=== PATIENT | female | born 1945 | race Caucasian/White ===

== ENCOUNTER 2024-11-25 04:13 | Emergency (ER) | payer BC, SELFPAY ==
[2024-11-25 04:26] VITALS: BP 126/74
[2024-11-25 05:07] VITALS: BP 144/78; BMI 26.5
[2024-11-25 05:09] VITALS: BP 144/78
[2024-11-25 05:25] LABS: % Basophils 0.5 % (0-2); % Eosinophils 0.8 % (0-6); % Immature Granulocytes 0.4 % (0-0.5); % Lymphocytes 6.4 % (20.5-51.1); % Neutrophils 85.9 % (42.2-75.2); Absolute Eosinophils 0.1 10^3/uL (0-0.7); Absolute Lymphocytes 0.5 10^3/uL (1.2-3.4); Absolute Monocytes 0.4 10^3/uL (0.1-0.6); Absolute Neutrophils 6.3 10^3/uL (1.4-6.5); Hematocrit 38.4 % (37.0-47.0); Hemoglobin 12.9 g/dL (12.0-16.0); Mean Corp Hgb Conc. 33.6 g/dL (33.0-37.0); Mean Corpuscular Hgb 31.7 pg (27.0-31.0); Mean Corpuscular Volume 94.3 fL (81.0-99.0); Mean Platelet Volume 8.7 fL (7.4-10.4); Nucleated Red Blood Cells % 0.3 %; Platelet Count 143 10^3/uL (130-400); Red Blood Cell Count 4.07 10^6/uL (4.20-5.40); Red Cell Dist. Width 11.9 % (11.5-14.5); White Blood Cell Count 7.4 10^3/uL (4.8-10.8)
[2024-11-25 05:41] LABS: Urine Albumin 2+ (Neg - Trace); Urine Bilirubin Negative (Negative); Urine Character Slightly Cloudy (Clear); Urine Color Amber; Urine Glucose Negative (Negative); Urine Ketone 2+ (Negative); Urine Leukocyte 1+ (Negative); Urine Nitrite Negative (Negative); Urine Occult Blood 4+ (Negative); Urine Urobilinogen Negative (Neg - 1+)
[2024-11-25 05:51] LABS: ALT (SGPT) 55 U/L (0-35); AST (SGOT) 39 U/L (14-36); Albumin 3.6 g/dl (3.5-5.0); Alkaline Phosphatase 72 U/L (38-126); Blood Urea Nitrogen 21 mg/dl (7-17); Calcium 9.3 mg/dl (8.4-10.2); Carbon Dioxide 26 mmol/L (22-30); Chloride 100 mmol/L (98-107); Estimated Creatinine Clearance 37 ml/min; Glucose 137 mg/dl (70-99); Lipase 115 U/L (23-300); Potassium 4.6 mmol/L (3.5-5.1); Sodium 134 mmol/L (135-145); Total Bilirubin 1.1 mg/dl (0.2-1.3); Total Protein 6.2 g/dl (6.3-8.2); eGFR 51.43
[2024-11-25 06:13] LABS: Urine Squamous Cell >30 /LPF (Few)
[2024-11-25 06:17] LABS: Urine Amorphous Seen
[2024-11-25 06:18] LABS: Urine Bacteria Moderate (Negative); Urine Red Blood Cell 70-80 /HPF (0-2)
[2024-11-25] MEDS: ZOFRAN 4 MG IV (06:25)
[2024-11-25] MEDS: NSS 500 IV (06:26)
[2024-11-25] MEDS: TORADOL 15 MG IV (06:26)
[2024-11-25 06:29] VITALS: BP 137/73
--- NOTE | 2024-11-25 07:10 | ED.GENMED ---
History of Present Illness
General
Chief Complaint: Abdominal Pain
Source: patient
Exam Limitations: none
Time Seen by Provider: 11/25/24 06:07
Nursing documentation reviewed up to this point in time: agreed with
History of Present Illness
History of Present Illness:
Patient presents to ED secondary to intermittent pain over the past 3 days. Patient states that when her pain began, it started over right upper back, which now has radiated to the front of abdomen, near her groin. Denies fever or chills. Patient
reports nausea and vomiting sensation when pain is exacerbated. Denies trauma. Denies difficulty urination. Denies previous history of similar symptoms. There is no family history of gallstones or kidney stones. Denies recent illness. Denies
recent change in medications or diet. Denies recent change in activities.
Review of Systems
Review of Systems
Allergies reviewed?: Yes
All Other Systems: ROS reviewed and negative except as documented in HPI and ROS
Constitutional: Reports no symptoms; Denies fever or chills
Respiratory: Reports no symptoms; Denies trouble breathing
Cardiac: Reports no symptoms; Denies chest pain
ABD/GI: Reports abdominal pain, nausea and vomiting
: Reports flank pain
Musculoskeletal: Reports back pain
Skin: Reports no symptoms
Neurological: Reports no symptoms
Phy Exam
Physical Exam
Physical Exam:
Physical Exam
General: mild painful distress, not acutely ill. afebrile
Head: nc/at. eomi
Neck: supple. no meningeal signs.
Heart: s1/s2 regular rate and rhythm, no murmur.
Lungs: no acute respiratory distress.
Abdomen: normal bowel sounds. not tender. no distention
Neuro: alert and oriented x 3. no focal neurological deficits
Skin: no rash
Psychiatric: well kept. interactive and cooperative
Extremities: no edema. no calf tenderness.
Course
Orders/Labs/Results
Orders:
Orders
03/19/25 04:49
IV Insert/Care/Rem.- Treatment PRN
11/25/24 05:03
Complete Blood Count/With Diff Urgent
Comprehensive Metabolic Panel Urgent
Lipase Urgent
11/25/24 05:29
UA Reflex to Culture [Urinalysis Reflex To Culture] Urgent
Date Specimen was Collected: 11/25/24
Time Specimen was Collected: 05:27
Urine Microscopic Reflex Cult Urgent
Urine Culture Urgent
SHAMAR Source: U
Specimen Description:
Date Specimen was Collected: 11/25/24
Time Specimen was Collected: 05:27
11/25/24 06:18
0.9% Sodium Chloride 500 ml [Nss] 500 ml IV BOLUS
Ketorolac [Toradol] 15 mg IV NOW STA
Ondansetron Injectable [Zofran] 4 mg IV NOW STA
11/25/24 06:19
CT Abd/pel Without Iv Or Oral Urgent
Comment:
Reason For Exam: right flank pain
Abnormal Lab Results
11/25/24 11/25/24
05:03 05:29
RBC 4.07 L 10^6/uL
(4.20-5.40)
MCH 31.7 H pg
(27.0-31.0)
Absolute Lymphs (auto) 0.5 L 10^3/uL
(1.2-3.4)
Neutrophils % 85.9 H %
(42.2-75.2)
Lymphocytes % 6.4 L %
(20.5-51.1)
Sodium 134 L mmol/L
(135-145)
BUN 21 H mg/dl
(7-17)
Creatinine 1.1 H mg/dL
(0.6-1.0)
Glucose 137 H mg/dl
(70-99)
AST 39 H U/L
(14-36)
ALT 55 H U/L
(0-35)
Total Protein 6.2 L g/dl
(6.3-8.2)
Urine Ketones 2+ A
(Negative)
Ur Occult Blood Reflex 4+ A
(Negative)
Leukocyte Esterase Rfl 1+ A
(Negative)
Urine RBC 70-80 A /HPF
(0-2)
Urine Bacteria (Reflex) Moderate A
(Negative)
Urine Albumin (Reflex) 2+ A
(Neg - Trace)
11/25/24 05:03
11/25/24 05:03
Vital Signs
Initial and Last Documented VS:
Initial Vital Signs
Temp Pulse Resp BP Pulse Ox
98.3 F 100 20 126/74 94
11/25/24 04:26 11/25/24 04:26 11/25/24 04:26 11/25/24 04:26 11/25/24 04:26
Last Documented Vital Signs
Temp Pulse Resp BP Pulse Ox
98.3 F 70 18 137/73 94
11/25/24 04:26 11/25/24 06:29 11/25/24 06:29 11/25/24 06:29 11/25/24 06:29
MDM/Problems Addressed
MDM/Problems Addressed:
CT report reviewed and discussed with patient, including number of incidental findings. Patient advised to follow-up with primary care physician for further evaluation and treatment.
In addition, in terms of renal stone causing obstructive symptoms, patient will be given urine strainer along with prescription for Toradol and Flomax, along with urology for an outpatient consultation. Advised to return to ED with worsening
symptoms, i.e. fever/inability to urinate/worsening pain. Patient expresses understanding at time of discharge. Patient reports complete resolution of symptoms after treatment, at time of discharge, to the care of her spouse.
*Critical Care Note
Total Time (30-74mins, 75-104mins- exclusive of procedures): Not Applicable
ED Attending Note
-
Portions of this chart may have been created with voice recognition software.� Occasional wrong word or��sound alike� substitutions may have occurred due to the inherent limitations of voice recognition software.
Discharge Plan
Departure
Patient Disposition: Home (Routine Discharge)
Date of Disposition: 11/25/24
Time of Disposition: 07:39
Patient with high blood pressure during this ER visit?: Yes
Condition: Good
Discharge Problem:
Renal colic
Instructions: Renal Colic (DC)
Prescriptions:
New
tamsulosin [Flomax] 0.4 mg Capsule
0.4 mg PO DAILY Qty: 7 0RF
ondansetron 4 mg Tablet,Disintegrating
4 mg PO TIDPRN PRN (Reason: nausea/vomiting) Qty: 12 0RF
ketorolac 10 mg tablet
10 mg PO Q8H PRN (Reason: Pain) Qty: 14 0RF
Rx Instructions:
maximum total duration of 5 days from all oral, intranasal, or parenteral formulations
Referrals:
Chalo Mar MD [Active] -
UNKNOWN - PT DOES,NOT KNOW [Family Provider] -
Activity Restrictions/Additional Instructions:
As discussed, please follow-up with your primary care physician as well as referred urologist for further evaluation and treatment, including review of provided CT report. Please consider returning to ED with worsening symptoms, i.e.
fever/inability to urinate/worsening pain. Your prescriptions have been sent electronically to [facility] pharmacy in [place].
Interventions
Interventions:
*Risk Screen - Suicide Last Done: 11/25/24 04:26
*General Assessment Last Done: 11/25/24 05:08
*Neglect/Abuse Screening Last Done: 11/25/24 04:26
*ED- Fall Risk Assessment Last Done: 11/25/24 05:08
*ED COVID-19 Vaccine History Last Done: 11/25/24 05:08
*Nursing Disposition Last Done: 11/25/24 08:29
WT-Hfgcna-Ptatdgcnjg Assessment Last Done: 11/25/24 05:22
Discharge Date and Time
Discharge Date/Time: 11/25/24 08:30
Print Language: ICELANDIC
== END 2024-11-25 08:30 | disposition home or self-care (01) ==
LOC: EMR 04:13
PROVIDERS: Student in an Organized Health Care Education/Training Program; EMERGENCY PHYSICIAN Emergency Medicine
DX: N13.2 Hydronephrosis with renal and ureteral calculous obstruction (principal); Z90.13 Acquired absence of bilateral breasts and nipples
CPT/HCPCS: 99284; 74176; 80053; 81003; 81015; 83690; 85025; 87086

== ENCOUNTER → 2024-12-11 07:44 | Outpatient (REF) | payer OTHER, SELFPAY ==
[2024-12-11 09:17] LABS: % Basophils 0.6 % (0-2); % Eosinophils 1.3 % (0-6); % Immature Granulocytes 0.7 % (0-0.5); % Lymphocytes 5.8 % (20.5-51.1); % Monocytes 4.8 % (1.7-9.3); % Neutrophils 86.8 % (42.2-75.2); Absolute Basophils 0.1 10^3/uL (0-0.2); Absolute Eosinophils 0.2 10^3/uL (0-0.7); Absolute Immature Granulocytes 0.1 10^3/uL (0-0.05); Absolute Lymphocytes 0.7 10^3/uL (1.2-3.4); Absolute Monocytes 0.6 10^3/uL (0.1-0.6); Hematocrit 31.9 % (37.0-47.0); Hemoglobin 10.7 g/dL (12.0-16.0); Mean Corp Hgb Conc. 33.5 g/dL (33.0-37.0); Mean Corpuscular Hgb 31.1 pg (27.0-31.0); Mean Corpuscular Volume 92.7 fL (81.0-99.0); Mean Platelet Volume 8.6 fL (7.4-10.4); Nucleated Red Blood Cells % 0 %; Platelet Count 312 10^3/uL (130-400); Red Blood Cell Count 3.44 10^6/uL (4.20-5.40); Red Cell Dist. Width 13.3 % (11.5-14.5); White Blood Cell Count 12.7 10^3/uL (4.8-10.8)
[2024-12-11 09:59] LABS: ALT (SGPT) 178 U/L (0-35); AST (SGOT) 202 U/L (14-36); Albumin 2.7 g/dl (3.5-5.0); Alkaline Phosphatase 524 U/L (38-126); Blood Urea Nitrogen 12 mg/dl (7-17); Calcium 8.4 mg/dl (8.4-10.2); Carbon Dioxide 29 mmol/L (22-30); Chloride 98 mmol/L (98-107); Glucose 115 mg/dl (70-99); Potassium 4.7 mmol/L (3.5-5.1); Sodium 135 mmol/L (135-145); Total Bilirubin 1.1 mg/dl (0.2-1.3); Total Protein 5.6 g/dl (6.3-8.2); eGFR > 60.00
[2024-12-11 10:24] LABS: TSH 4.28 uIU/ml (0.47-4.68)
== END ==
LOC: REG 07:44
PROVIDERS: ATTENDING PHYSICIAN Specialist
DX: N20.0 Calculus of kidney (principal); N20.1 Calculus of ureter
CPT/HCPCS: 36415; 74018; 80053; 84443; 85025

== ENCOUNTER → 2025-01-14 10:46 | Outpatient (REF) | payer OTHER, SELFPAY | LOC: RAD 10:46 | PROVIDERS: ATTENDING PHYSICIAN Student in an Organized Health Care Education/Training Program | DX: R53.83 Other fatigue (principal); K44.9 Diaphragmatic hernia without obstruction or gangrene; R91.1 Solitary pulmonary nodule; R74.8 Abnormal levels of other serum enzymes; M89.9 Disorder of bone, unspecified | CPT/HCPCS: 72190; 76700 ==

== ENCOUNTER 2025-02-13 04:27 | Emergency (ER) | payer OTHER, SELFPAY ==
[2025-02-13] VITALS (8 sets, daily range): BP systolic 98–124; BP diastolic 60–81; BMI 25.2
[2025-02-13 05:06] LABS: % Basophils 0.6 % (0-2); % Eosinophils 1.7 % (0-6); % Immature Granulocytes 0.4 % (0-0.5); % Lymphocytes 13.1 % (20.5-51.1); % Monocytes 4.8 % (1.7-9.3); % Neutrophils 79.4 % (42.2-75.2); Absolute Basophils 0.1 10^3/uL (0-0.2); Absolute Eosinophils 0.1 10^3/uL (0-0.7); Absolute Lymphocytes 1.1 10^3/uL (1.2-3.4); Absolute Monocytes 0.4 10^3/uL (0.1-0.6); Absolute Neutrophils 6.6 10^3/uL (1.4-6.5); Hematocrit 32.9 % (37.0-47.0); Hemoglobin 10.2 g/dL (12.0-16.0); Mean Corpuscular Hgb 26.9 pg (27.0-31.0); Mean Corpuscular Volume 86.8 fL (81.0-99.0); Mean Platelet Volume 7.9 fL (7.4-10.4); Nucleated Red Blood Cells % 0 %; Platelet Count 293 10^3/uL (130-400); Red Blood Cell Count 3.79 10^6/uL (4.20-5.40); Red Cell Dist. Width 15.8 % (11.5-14.5); White Blood Cell Count 8.4 10^3/uL (4.8-10.8)
[2025-02-13 05:08] LABS: Urine Albumin 1+ (Neg - Trace); Urine Bilirubin Negative (Negative); Urine Character Clear (Clear); Urine Color Yellow; Urine Glucose Negative (Negative); Urine Ketone 2+ (Negative); Urine Leukocyte Negative (Negative); Urine Nitrite Negative (Negative); Urine Occult Blood 1+ (Negative); Urine Specific Gravity 1.025 (<1.030); Urine Urobilinogen Negative (Neg - 1+)
[2025-02-13 05:23] LABS: Urine Mucus Many; Urine Squamous Cell >30 /LPF (Few)
[2025-02-13 05:24] LABS: Urine Bacteria Moderate (Negative)
[2025-02-13 05:37] LABS: ALT (SGPT) < 10 U/L (0-35); AST (SGOT) 14 U/L (14-36); Albumin 3.4 g/dl (3.5-5.0); Alkaline Phosphatase 71 U/L (38-126); Blood Urea Nitrogen 18 mg/dl (7-17); Calcium 9.3 mg/dl (8.4-10.2); Carbon Dioxide 25 mmol/L (22-30); Chloride 104 mmol/L (98-107); Glucose 127 mg/dl (70-99); Lipase 229 U/L (23-300); Potassium 4.5 mmol/L (3.5-5.1); Sodium 137 mmol/L (135-145); Total Bilirubin 0.6 mg/dl (0.2-1.3); Total Protein 6.4 g/dl (6.3-8.2); eGFR > 60.00
[2025-02-13] MEDS: ZOFRAN 4 MG IV (06:26)
--- NOTE | 2025-02-13 06:26 | ED.GENMED ---
History of Present Illness
General
Chief Complaint: Abdominal Pain
Source: patient
Exam Limitations: none
Time Seen by Provider: 02/13/25 06:02
Nursing documentation reviewed up to this point in time: agreed with
History of Present Illness
History of Present Illness:
79-year-old female history of anal hernia found on a prior CT generally asymptomatic recently diagnosed with hypothyroid started on Synthroid presents with right upper abdominal pain after eating a turkey sandwich no prior episodes
Pain is sharp goes into her back hard to take a deep breath due to pain no fever chills no prior abdominal surgeries stones or gallbladder
Past History
Past History
ED Past Medical History: Hypothyroidism and Other (Hiatal hernia hypothyroid)
ED Past Surgical History: Tonsilectomy; Negative Appendectomy or Cardiac
Social History
Tobacco: Non-smoker
Alcohol: None
Drug: None
Personal:
Living: with family
Employment: Employed
Phy Exam
Physical Exam
Physical Exam:
Physical Exam
General: 79-year-old female looks uncomfortable
Neck: No jaundice
Heart: s1/s2 regular rate and rhythm, no murmur. equal radial pulses.
Lungs: No wheeze
Abdomen: Tender in the right upper
Neuro: alert and oriented. no focal neurological deficits
Skin: no rash
Psychiatric: well kept. interactive and cooperative
Extremities: no edema.
Course
Orders/Labs/Results
Orders:
Orders
02/13/25 04:35
IV Insert/Care/Rem.- Treatment PRN
Straight cath- Treatment ONCE
02/13/25 04:47
Complete Blood Count/With Diff Urgent
Comprehensive Metabolic Panel Urgent
Lipase Urgent
Urinalysis Reflex To Culture Urgent
Date Specimen was Collected: 02/13/25
Time Specimen was Collected: 04:36
Urine Microscopic Reflex Cult Urgent
Urine Culture Urgent
SHAMAR Source: U
Specimen Description:
Date Specimen was Collected: 02/13/25
Time Specimen was Collected: 04:36
02/13/25 06:21
US Abdomen Complete/Upper Urgent
Comment:
Reason For Exam: pain
02/13/25 06:22
Electrocardiogram (*1) Urgent
Reason for Study: Abdominal Pain
EKG- Treatment ONCE
HYDROmorphone [Dilaudid] 0.5 mg IV NOW STA
Ondansetron Injectable [Zofran] 4 mg IV NOW STA
Pantoprazole [Protonix IV] 40 mg IV NOW STA
02/13/25 06:34
Ketorolac [Toradol] 30 mg IV NOW STA
02/13/25 09:43
CT Chest PE Study Urgent
Comment:
Reason For Exam: sob right sided pain
02/13/25 11:37
US Periph Venous LOWER Ext Vamshi Urgent
Comment:
Reason For Exam: PE
02/13/25 11:37
Apixaban [Eliquis] 10 mg PO NOW STA
02/13/25 11:38
NT-proBNP Urgent
Troponin I Urgent
Abnormal Lab Results
02/13/25
04:47
RBC 3.79 L 10^6/uL
(4.20-5.40)
Hgb 10.2 L g/dL
(12.0-16.0)
Hct 32.9 L %
(37.0-47.0)
MCH 26.9 L pg
(27.0-31.0)
MCHC 31.0 L g/dL
(33.0-37.0)
RDW 15.8 H %
(11.5-14.5)
Absolute Neuts (auto) 6.6 H 10^3/uL
(1.4-6.5)
Absolute Lymphs (auto) 1.1 L 10^3/uL
(1.2-3.4)
Neutrophils % 79.4 H %
(42.2-75.2)
Lymphocytes % 13.1 L %
(20.5-51.1)
BUN 18 H mg/dl
(7-17)
Glucose 127 H mg/dl
(70-99)
Albumin 3.4 L g/dl
(3.5-5.0)
Urine Ketones 2+ A
(Negative)
Ur Occult Blood Reflex 1+ A
(Negative)
Urine RBC 7-10 A /HPF
(0-2)
Urine Bacteria (Reflex) Moderate A
(Negative)
Urine Albumin (Reflex) 1+ A
(Neg - Trace)
02/13/25 04:47
02/13/25 04:47
Vital Signs
Initial and Last Documented VS:
Initial Vital Signs
Temp Pulse Resp BP Pulse Ox
97.9 F 114 20 115/74 94
02/13/25 04:30 02/13/25 04:30 02/13/25 04:30 02/13/25 04:30 02/13/25 04:30
Last Documented Vital Signs
Temp Pulse Resp BP Pulse Ox
98.5 F 82 16 98/62 96
02/13/25 05:38 02/13/25 10:30 02/13/25 10:30 02/13/25 10:00 02/13/25 10:30
MDM/Problems Addressed
Differential Diagnosis Includes:
Biliary colic pancreatitis gastritis hiatal hernia pulmonary issue doubt appendicitis
MDM/Problems Addressed:
Abdominal pain after eating turkey
*Radiology
Radiology exam reviewed: preliminary read by ED provider and radiology read reviewed
*Pulse Oximetry
Patient hypoxic: no
Comment: 98
*EKG
Interpreted by ED Provider?: Yes
Interpretation: normal
Comparison EKG: no comparison EKG present
Heart Rate: 78
Rate: normal
Ischemia: non-specific ST changes
*Storage Manager Interpretation
Rate: normal
Interpretation: normal
Heart Rate: 78
Rhythm: sinus
*Critical Care Note
Total Time (30-74mins, 75-104mins- exclusive of procedures): 30
Update Note
Update Note:
9:[address] noted patient states she feels little better after Toradol does report that she was short of breath and the pain up into her chest we will check CT PE scan, rule out PE also get another look potentiate her biliary tract on the
lower cuts
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
ED Attending Note
-
Portions of this chart may have been created with voice recognition software.� Occasional wrong word or��sound alike� substitutions may have occurred due to the inherent limitations of voice recognition software.
Discharge Plan
Departure
Prescriptions:
No Action
tamsulosin [Flomax] 0.4 mg Capsule
0.4 mg PO DAILY Qty: 7 0RF
ondansetron 4 mg Tablet,Disintegrating
4 mg PO TIDPRN PRN (Reason: nausea/vomiting) Qty: 12 0RF
ketorolac 10 mg tablet
10 mg PO Q8H PRN (Reason: Pain) Qty: 14 0RF
Rx Instructions:
maximum total duration of 5 days from all oral, intranasal, or parenteral formulations
Referrals:
Halley Hanna CRNP [Family Provider, Internal Medicine]
Interventions
Interventions:
*Risk Screen - Suicide Last Done: 02/13/25 04:30
*General Assessment Last Done: 02/13/25 04:30
*Neglect/Abuse Screening Last Done: 02/13/25 04:30
*ED- Fall Risk Assessment Last Done: 02/13/25 04:30
*ED COVID-19 Vaccine History Last Done: 02/13/25 04:30
XQ-Yzgaoz-Bdxcxyawhb Assessment Last Done: 02/13/25 05:38
Discharge Date and Time
Print Language: JAPANESE
[2025-02-13] MEDS: TORADOL 30 MG IV (06:57)
[2025-02-13] MEDS: ELIQUIS 10 MG PO (11:54)
[2025-02-13 12:37] LABS: NT-proBNP 145 pg/ml; Troponin I < 0.012 ng/ml
--- NOTE | 2025-02-13 14:22 | ED.GENMED ---
History of Present Illness
General
Chief Complaint: Abdominal Pain
Time Seen by Provider: 02/13/25 06:02
Past History
Past History
ED Past Medical History: Hypothyroidism and Other (Hiatal hernia hypothyroid)
ED Past Surgical History: Tonsilectomy; Negative Appendectomy or Cardiac
Social History
Tobacco: Non-smoker
Alcohol: None
Drug: None
Personal:
Living: with family
Employment: Employed
Course
Orders/Labs/Results
Orders:
Orders
02/13/25 04:35
IV Insert/Care/Rem.- Treatment PRN
Straight cath- Treatment ONCE
02/13/25 04:47
Complete Blood Count/With Diff Urgent
Comprehensive Metabolic Panel Urgent
Lipase Urgent
Urinalysis Reflex To Culture Urgent
Date Specimen was Collected: 02/13/25
Time Specimen was Collected: 04:36
Urine Microscopic Reflex Cult Urgent
Urine Culture Urgent
SHAMAR Source: U
Specimen Description:
Date Specimen was Collected: 02/13/25
Time Specimen was Collected: 04:36
02/13/25 06:21
US Abdomen Complete/Upper Urgent
Comment:
Reason For Exam: pain
02/13/25 06:22
Electrocardiogram (*1) Urgent
Reason for Study: Abdominal Pain
EKG- Treatment ONCE
HYDROmorphone [Dilaudid] 0.5 mg IV NOW STA
Ondansetron Injectable [Zofran] 4 mg IV NOW STA
Pantoprazole [Protonix IV] 40 mg IV NOW STA
02/13/25 06:34
Ketorolac [Toradol] 30 mg IV NOW STA
02/13/25 09:43
CT Chest PE Study Urgent
Comment:
Reason For Exam: sob right sided pain
02/13/25 11:37
Apixaban [Eliquis] 10 mg PO NOW STA
US Periph Venous LOWER Ext Vamshi Stat
Comment:
Reason For Exam: PE
02/13/25 11:53
NT-proBNP Urgent
Troponin I Urgent
Abnormal Lab Results
02/13/25
04:47
RBC 3.79 L 10^6/uL
(4.20-5.40)
Hgb 10.2 L g/dL
(12.0-16.0)
Hct 32.9 L %
(37.0-47.0)
MCH 26.9 L pg
(27.0-31.0)
MCHC 31.0 L g/dL
(33.0-37.0)
RDW 15.8 H %
(11.5-14.5)
Absolute Neuts (auto) 6.6 H 10^3/uL
(1.4-6.5)
Absolute Lymphs (auto) 1.1 L 10^3/uL
(1.2-3.4)
Neutrophils % 79.4 H %
(42.2-75.2)
Lymphocytes % 13.1 L %
(20.5-51.1)
BUN 18 H mg/dl
(7-17)
Glucose 127 H mg/dl
(70-99)
Albumin 3.4 L g/dl
(3.5-5.0)
Urine Ketones 2+ A
(Negative)
Ur Occult Blood Reflex 1+ A
(Negative)
Urine RBC 7-10 A /HPF
(0-2)
Urine Bacteria (Reflex) Moderate A
(Negative)
Urine Albumin (Reflex) 1+ A
(Neg - Trace)
02/13/25 04:47
02/13/25 04:47
Vital Signs
Initial and Last Documented VS:
Initial Vital Signs
Temp Pulse Resp BP Pulse Ox
97.9 F 114 20 115/74 94
02/13/25 04:30 02/13/25 04:30 02/13/25 04:30 02/13/25 04:30 02/13/25 04:30
Last Documented Vital Signs
Temp Pulse Resp BP Pulse Ox
98.5 F 82 16 98/62 97
02/13/25 05:38 02/13/25 10:30 02/13/25 10:30 02/13/25 10:00 02/13/25 12:03
Update Note
Update Note:
2:20 PM update patient remains hemodynamically stable here she would like to go home negative cardiac markers given a coupon card for Eliquis
ED Attending Note
-
Portions of this chart may have been created with voice recognition software.� Occasional wrong word or��sound alike� substitutions may have occurred due to the inherent limitations of voice recognition software.
Discharge Plan
Departure
Patient Disposition: Home (Routine Discharge)
Date of Disposition: 02/13/25
Time of Disposition: 14:23
Patient with high blood pressure during this ER visit?: No
Condition: Good
Discharge Problem:
Pulmonary emboli
Prescriptions:
No Action
tamsulosin [Flomax] 0.4 mg Capsule
0.4 mg PO DAILY Qty: 7 0RF
ondansetron 4 mg Tablet,Disintegrating
4 mg PO TIDPRN PRN (Reason: nausea/vomiting) Qty: 12 0RF
ketorolac 10 mg tablet
10 mg PO Q8H PRN (Reason: Pain) Qty: 14 0RF
Rx Instructions:
maximum total duration of 5 days from all oral, intranasal, or parenteral formulations
Referrals:
Halley Hanna CRNP [Family Provider, Internal Medicine] - Next open appointment
Activity Restrictions/Additional Instructions:
Eliquis 10 mg twice a day for 7 days, then 5 mg twice a day
Tylenol as needed for pain
Follow-up with your primary care provider call Saturday for an appointment
Interventions
Interventions:
*Risk Screen - Suicide Last Done: 02/13/25 04:30
*General Assessment Last Done: 02/13/25 04:30
*Neglect/Abuse Screening Last Done: 02/13/25 04:30
*ED- Fall Risk Assessment Last Done: 02/13/25 04:30
*ED COVID-19 Vaccine History Last Done: 02/13/25 04:30
KX-Ljonat-Uryozmcgqy Assessment Last Done: 02/13/25 05:38
Discharge Date and Time
Print Language: SLOVENIAN
== END 2025-02-13 14:43 | disposition home or self-care (01) ==
LOC: EMR 04:27
PROVIDERS: Emergency Medicine; EMERGENCY PHYSICIAN Emergency Medicine; FAMILY PHYSICIAN Nurse Practitioner Primary Care
DX: R10.9 Unspecified abdominal pain (principal); E03.9 Hypothyroidism, unspecified; R06.02 Shortness of breath; R07.89 Other chest pain; R26.89 Other abnormalities of gait and mobility; Z79.899 Other long term (current) drug therapy
CPT/HCPCS: 99284; 96374; 96375; 71275; 76700; 80053; 81003; 81015; 83690; 83880; 84484; 85025; 87086; 93005; 93970; Q9967

== ENCOUNTER → 2025-03-09 07:09 | Outpatient (REF) | payer OTHER, SELFPAY | LOC: RCS 07:09 | PROVIDERS: ATTENDING PHYSICIAN Nurse Practitioner Primary Care | DX: I26.99 Other pulmonary embolism without acute cor pulmonale (principal); R06.09 Other forms of dyspnea; Z85.3 Personal history of malignant neoplasm of breast; D50.8 Other iron deficiency anemias; R59.0 Localized enlarged lymph nodes | CPT/HCPCS: 74177; 93306; Q9967 ==

== ENCOUNTER 2025-04-07 07:06 | Outpatient (RCR) | payer OTHER, SELFPAY | END 2025-04-07 23:59 | disposition home or self-care (01) | LOC: RPT 07:06 | PROVIDERS: ATTENDING PHYSICIAN Nurse Practitioner Primary Care | DX: M54.16 Radiculopathy, lumbar region (principal); M51.362 Other intervertebral disc degeneration, lumbar region with discogenic back pain and lower extremity pain; R53.1 Weakness | CPT/HCPCS: 97110; 97162 ==

== ENCOUNTER 2025-05-07 09:11 | Outpatient (RCR) | payer OTHER, SELFPAY | END 2025-05-07 23:59 | disposition home or self-care (01) | LOC: RPT 09:11 | PROVIDERS: ATTENDING PHYSICIAN Nurse Practitioner Primary Care | DX: M54.16 Radiculopathy, lumbar region (principal); M51.362 Other intervertebral disc degeneration, lumbar region with discogenic back pain and lower extremity pain; R53.1 Weakness; Z73.6 Limitation of activities due to disability | CPT/HCPCS: 97110; 97112; 97140 ==

== ENCOUNTER 2025-06-02 10:00 | Outpatient (RCR) | payer OTHER, SELFPAY | END 2025-06-03 07:32 | disposition home or self-care (01) | LOC: RPT 10:00 | PROVIDERS: ATTENDING PHYSICIAN Nurse Practitioner Primary Care | DX: M54.16 Radiculopathy, lumbar region (principal); M51.362 Other intervertebral disc degeneration, lumbar region with discogenic back pain and lower extremity pain; R53.1 Weakness; Z73.6 Limitation of activities due to disability | CPT/HCPCS: 97110; 97112 ==

== ENCOUNTER → 2025-06-07 08:09 | Outpatient (REF) | payer OTHER, SELFPAY | LOC: RAD 08:09 | PROVIDERS: ATTENDING PHYSICIAN Nurse Practitioner Primary Care | DX: I26.99 Other pulmonary embolism without acute cor pulmonale (principal); J90 Pleural effusion, not elsewhere classified | CPT/HCPCS: 71046 ==

== ENCOUNTER 2025-08-27 13:29 | Emergency (ER) | payer OTHER, SELFPAY ==
[2025-08-27 13:35] VITALS: BP 166/82
[2025-08-27 14:05] LABS: Hematocrit 37.8 % (37.0-47.0); Hemoglobin 12.5 g/dL (12.0-16.0); Mean Corp Hgb Conc. 33.1 g/dL (33.0-37.0); Mean Corpuscular Volume 93.3 fL (81.0-99.0); Nucleated Red Blood Cells % 0 %; Platelet Count 146 10^3/uL (130-400); Red Cell Dist. Width 13.1 % (11.5-14.5)
[2025-08-27 14:16] LABS: ALT (SGPT) 23 U/L (0-35); AST (SGOT) 28 U/L (14-36); Albumin 3.8 g/dl (3.5-5.0); Alkaline Phosphatase 56 U/L (38-126); Blood Urea Nitrogen 26 mg/dl (7-17); Calcium 9.2 mg/dl (8.4-10.2); Carbon Dioxide 28 mmol/L (22-30); Chloride 106 mmol/L (98-107); Glucose 99 mg/dl (70-99); Potassium 4.3 mmol/L (3.5-5.1); Sodium 138 mmol/L (135-145); Total Protein 6.5 g/dl (6.3-8.2); eGFR > 60.00
--- NOTE | 2025-08-27 18:11 | ED.GENMED ---
History of Present Illness
General
Chief Complaint: Visual Problem
Source: patient
Exam Limitations: none
Time Seen by Provider: 08/27/25 17:53
Nursing documentation reviewed up to this point in time: agreed with
History of Present Illness
History of Present Illness:
Patient to the emergency department for evaluation after an episode of blurriness of vision with a tingling sensation to her right hand. Symptoms started earlier today. Lasted approximately 1 hour. Patient states she has had the symptoms before.
She has a history of ocular migraines. She is usually able to address various trigger points and resolve her symptoms. She did this today and her symptoms resolved. She has not had the symptoms in quite some time and felt that she should come to
the emergency department for evaluation. On exam she is awake and alert in no distress. She is currently asymptomatic.
Past History
Past History
ED Past Medical History: Hypothyroidism and Other (Hiatal hernia hypothyroid)
ED Past Surgical History: Tonsilectomy; Negative Appendectomy or Cardiac
Social History
Tobacco: Non-smoker
Alcohol: None
Drug: None
Personal:
Living: with family
Employment: Employed
Review of Systems
Review of Systems
Allergies reviewed?: Yes
All Other Systems: ROS reviewed and negative except as documented in HPI and ROS
Constitutional: Reports no symptoms
EENT: Reports other (Blurred vision)
Respiratory: Reports no symptoms
Cardiac: Reports no symptoms
ABD/GI: Reports no symptoms
: Reports no symptoms
Musculoskeletal: Reports no symptoms
Skin: Reports no symptoms
Neurological: Reports numbness (Numbness and tingling to right hand)
Psychiatric: Reports no symptoms
Phy Exam
General Physical Exam
General Presentation: well appearing and no apparent distress
General age: appears stated age
General Skin: warm and dry
General Habitus: normal
General Mental: alert
General Hydration: appears well hydrated
Cardiovascular Exam
Cardiovascular Exam: regular rate/rhythm and no edema
Pulmonary Exam
Pulmonary Exam: lungs clear and no respiratory distress
Neurological Exam
Neurological Exam: alert, oriented x3, CN II-XII intact, no motor deficits, no sensory deficits and speech normal
Terrence Coma Scale
Eye Opening: Spontaneous
Verbal Response: Oriented
Motor Response: Obeys Commands
GCS Total Score: 15
Mental
Mental Status: oriented to person, oriented to place, oriented to time and usual mental status
Describe Speech: normal speech
Cranial
Cranial Nerves: normal and no facial asymetry
EOM (CN3/4/6): intact
Motor
Seizure Activity: none
Gait: normal
Tremors: none
Other Movement Disorders: none
Right upper extremity: 4
Right lower extremity: 4
Left upper extremity: 4
Left lower extremity: 4
Bilateral upper extremities: 4
Bilateral lower extremities: 4
Sensory
Sensory Exam: intact
Cerebellar
Cerebellar Function: normal finger to nose and normal Romberg test
Musculoskeletal Exam
Musculoskeletal Exam: full ROM and neuro vasc intact
Skin Exam
Skin Exam: normal color, warm/dry and no rash
Psychiatric Exam
Psychiatric Exam: normal mood/affect
Course
Orders/Labs/Results
Orders:
Orders
08/27/25 13:37
CT Head W/o Iv Contrast Urgent
Comment:
Reason For Exam: blurred vision, right hand numbness
08/27/25 13:53
Complete Blood Count/With Diff Urgent
Comprehensive Metabolic Panel Urgent
Abnormal Lab Results
08/27/25
13:53
WBC 4.5 L 10^3/uL
(4.8-10.8)
RBC 4.05 L 10^6/uL
(4.20-5.40)
Absolute Lymphs (auto) 1.1 L 10^3/uL
(1.2-3.4)
BUN 26 H mg/dl
(7-17)
08/27/25 13:53
08/27/25 13:53
Vital Signs
Initial and Last Documented VS:
Initial Vital Signs
Temp Pulse Resp Pulse Ox
98.0 F 80 19 98
08/27/25 13:31 08/27/25 13:31 08/27/25 13:31 08/27/25 13:31
Last Documented Vital Signs
Temp Pulse Resp BP Pulse Ox
98.0 F 80 19 166/82 98
08/27/25 13:31 08/27/25 13:31 08/27/25 13:31 08/27/25 13:35 08/27/25 18:11
*Radiology
Radiology exam reviewed: radiology read reviewed
*Pulse Oximetry
SaO2: 98
Patient hypoxic: no
*Critical Care Note
Total Time (30-74mins, 75-104mins- exclusive of procedures): Not Applicable
Update Note
Update Note:
Patient to the emergency department for evaluation after an episode of blurred vision and tingling to her right hand. Patient states she has a history of ocular migraines and has had the symptoms in the past but very infrequently. It has been some
time since she has had the symptoms and felt that she should come to the emergency department for evaluation. Vital signs are stable and she remains afebrile. She is asymptomatic on exam today. She remains awake alert and oriented in no distress.
Labs reviewed, no concerning finding on CBC or CMP. Head CT completed, no acute intracranial abnormality noted. Neurologically she is at her baseline as per her spouse. Neurologic exam is unremarkable. Will discharge home and she will
follow-up with her family doctor. She was given instructions on signs and symptoms to return to the emergency department and she is agreeable to this plan.
ED Attending Note
-
Portions of this chart may have been created with voice recognition software.� Occasional wrong word or��sound alike� substitutions may have occurred due to the inherent limitations of voice recognition software.
Discharge Plan
Departure
Patient Disposition: Home (Routine Discharge)
Date of Disposition: 08/27/25
Time of Disposition: 18:09
Patient with high blood pressure during this ER visit?: No
Condition: Good
Covid-19: Not Applicable
Discharge Problem:
Cervical radiculopathy, Vision changes
Instructions: Migraines (DC), Radiculopathy of the neck and back (including sciatica) (DC)
Prescriptions:
No Action
tamsulosin [Flomax] 0.4 mg Capsule
0.4 mg PO DAILY Qty: 7 0RF
ondansetron 4 mg Tablet,Disintegrating
4 mg PO TIDPRN PRN (Reason: nausea/vomiting) Qty: 12 0RF
ketorolac 10 mg tablet
10 mg PO Q8H PRN (Reason: Pain) Qty: 14 0RF
Rx Instructions:
maximum total duration of 5 days from all oral, intranasal, or parenteral formulations
Eliquis DVT-PE Treat 30D Start 5 mg (74 tabs) tablets,dose pack
See Rx Instructions .ROUTE .COMPLEX Qty: 74 0RF
Rx Instructions:
orally per package directions
Activity Restrictions/Additional Instructions:
Follow-up with your family doctor next week. Return to the emergency department immediately for any changes in/worsening of your symptoms.
Interventions
Interventions:
*General Assessment Last Done: 08/27/25 13:36
*Neglect/Abuse Screening Last Done: 08/27/25 13:36
*ED COVID-19 Vaccine History Last Done: 08/27/25 13:36
*ED Influenza Vaccine History Last Done: 08/27/25 13:36
[facility] Risk Assessment Tool Last Done: 08/27/25 18:18
*Risk Screen - Suicide (C-SSRS) Last Done: 08/27/25 13:36
*Nursing Disposition Last Done: 08/27/25 18:26
ED- Neurological Assessment Last Done: 08/27/25 18:18
ED-EENT Assessment Last Done: 08/27/25 18:18
ED Swallowing Screen Last Done: 08/27/25 18:18
Discharge Date and Time
Discharge Date/Time: 08/27/25 18:27
Print Language: PASHTO
[2025-08-27 18:18] VITALS: BMI 26.1
== END 2025-08-27 18:27 | disposition home or self-care (01) ==
LOC: EMR 13:29
PROVIDERS: Emergency Medicine; EMERGENCY PHYSICIAN Student in an Organized Health Care Education/Training Program; FAMILY PHYSICIAN Nurse Practitioner Primary Care
DX: M54.12 Radiculopathy, cervical region (principal); E03.9 Hypothyroidism, unspecified; Z90.49 Acquired absence of other specified parts of digestive tract
CPT/HCPCS: 99284; 70450; 80053; 85025